=== PATIENT | female | born 1970 | race Caucasian/White ===

== ENCOUNTER 2017-02-15 16:19 | Emergency (ER) | payer OTHER ==
[2017-02-15 17:05] LABS: RED BLOOD COUNT 4.8 M/UL (4.00-5.10); WHITE BLOOD COUNT 9.2 K/UL (4.5-11.0)
[2017-02-15 17:22] LABS: BUN/CREATININE RATIO 16 (0-10)
== END 2017-02-15 23:10 | disposition home or self-care (01) ==
LOC: ER1 16:19
PROVIDERS: Specialist/Technologist Athletic Trainer
DX: R07.89 Other chest pain (principal); R55 Syncope and collapse; F41.9 Anxiety disorder, unspecified; F17.200 Nicotine dependence, unspecified, uncomplicated; M54.9 Dorsalgia, unspecified; G89.29 Other chronic pain; Z79.891 Long term (current) use of opiate analgesic; Z79.899 Other long term (current) drug therapy
CPT/HCPCS: 36415; 71010; 80053; 82550; 82553; 83874; 84484; 85025; 85379; 93005; 99285

== ENCOUNTER → 2022-02-03 | Outpatient (CLI) | payer OTHER ==
[~2022-02-03] MED LIST: CYCLOBENZAPRINE10 MG PO; NAPROSYN500 MG PO
== END ==
LOC: RAD 15:09
DX: M25.551 Pain in right hip (principal)
CPT/HCPCS: 73502